=== PATIENT | female | born 1970 | race Caucasian/White ===

== ENCOUNTER → 2024-10-03 09:09 | Outpatient (CLI) | payer OTHER, SELFPAY ==
--- NOTE | 2024-10-03 09:11 | DI.RAD.S_ITS ---
PROCEDURE: XR RIBS LT MIN 3V W CXR1V INDICATIONS: fall 09/29, pain w/ breathing rubi/lateral 5-8 ribs TECHNIQUE: 2 views of the ribs were acquired, along with a single view chest. COMPARISON: None. FINDINGS: Surgical changes and devices: None. Bones and chest wall: No acute displaced fracture or dislocation. Lungs and pleura: No dense consolidation or pleural effusions Mediastinum: Normal heart size IMPRESSION: No acute radiographic abnormality. If there is high concern for occult injury, consider repeat radiography or cross-sectional imaging. Dictated by: Narciso Carpio M.D. on 10/03/2024 at 9:31 Approved by: Narciso Carpio M.D. on 10/03/2024 at 9:32
== END ==
PROVIDERS: PCP Family Medicine; Referring Provider Student in an Organized Health Care Education/Training Program; Visit Provider Student in an Organized Health Care Education/Training Program
DX: R07.1 Chest pain on breathing (principal); W10.8XXA Fall (on) (from) other stairs and steps, initial encounter
CPT/HCPCS: 71101